=== PATIENT | female | born 1995 | race Caucasian/White ===

== ENCOUNTER → 2018-05-01 10:09 | Outpatient (CLI) | payer OTHER, SELFPAY ==
[2018-05-01 10:51] LABS: Glucose,1 Hr (Glucola) 105 mg/dL (80-140)
== END ==
PROVIDERS: PCP Nurse Practitioner Family; Visit Provider Advanced Practice Midwife
DX: Z34.83 Encounter for supervision of other normal pregnancy, third trimester (principal)
CPT/HCPCS: 36415; 82950

== ENCOUNTER → 2018-05-07 13:27 | Outpatient (REF) | payer OTHER, SELFPAY | LOC: LBN 13:27 | PROVIDERS: PCP Nurse Practitioner Family; Visit Provider Midwife | DX: Z34.83 Encounter for supervision of other normal pregnancy, third trimester (principal); Z36.85 Encounter for antenatal screening for Streptococcus B | CPT/HCPCS: 87081 ==

== ENCOUNTER → 2018-05-18 02:31 | Outpatient (CLI) | payer OTHER, SELFPAY ==
--- NOTE | 2018-05-18 12:19 | DI.REPORT_ITS ---
SYMPTOMS/DIAGNOSIS: SIZE OF FETUS INCONSISTENT WITH DATES, O26.843 OBSTETRICAL ULTRASOUND: Many abnormalities cannot be diagnosed. A normal exam does not exclude a congenital anomaly. Radiology No. [id number] LMP: Exam Date: 05/18/18 [facility] wks days on EDC ([facility]) 06/01/18 Confirmed: HISTORY: ---- PREDICTED GESTATIONAL AGE NUMBER 38 weeks with a range of 37 weeks to 39 weeks. 1 Determined by___1STUS___LMP___HISTORY PLACENTA PRESENTATION Grade II Cephalic_X__ Anterior_X__Posterior___ Breech____ Right Left Transverse(head right___ Fundal___Low-lying___Previa___ Transverse(head left___ Varying BIOMETRY AMNIOTIC FLUID BPD: 97 mm 39+5 weeks Normal HC: 340 mm 39+1 weeks AC: 341 mm 38 weeks FL: 75 mm 38+1 weeks AMNIOTIC FLUID INDEX >26 WK CRL: mm weeks Cisterna Magna: mm CI: 88 RUQ: 3.6 LUQ: 6.3 Cerebellum: cm EFW: 3472 grams Percentile: 72nd RLQ: 2.8 LLQ: 7.5 Total: 20.1 cm Composite AGE= 38+5 wks EDC by US: 05/27/18 BIOPHYSICAL PROFILE ANATOMY IDENTIFIED SCORE 0/2 Heart: 4-Chamber___Rate:BPM 131 LVOT: RVOT: Amniotic Fluid(>2cms)____ Stomach: Kidneys: Respirations (>30 secs) Bladder: Post. Fossa: Body Flex/Extension 3 vessel cord: Ventricles: cord insertion: Lips:____ Extremity Flex/Extension spinal morphology: Nose: Total Score= Palate: NS=not seen COMMENTS: There is a single living intrauterine gestation. Estimated sonographic age is 38 weeks 5 days. Estimated weight is 3472 g, which is the 72nd percentile. Amniotic fluid index is 20.1 cm. Visually, amniotic fluid appears within normal limits. The fetus is in the cephalic presentation. heart rate is 131 beats per minute. A anatomic survey was not performed at this time. The placenta is anterior without evidence of previa. IMPRESSION: Single living intrauterine gestation. Estimated sonographic age is 38 weeks 5 days.
== END ==
PROVIDERS: PCP Nurse Practitioner Family; Visit Provider Advanced Practice Midwife
DX: O26.843 Uterine size-date discrepancy, third trimester (principal)
CPT/HCPCS: 76816

== ENCOUNTER 2018-05-25 02:31 | Observation (INO) | payer OTHER, SELFPAY | END 2018-05-25 09:40 | disposition home or self-care (01) | PROVIDERS: Admitting Provider Advanced Practice Midwife; PCP Nurse Practitioner Family; Visit Provider Advanced Practice Midwife | DX: O47.1 False labor at or after 37 completed weeks of gestation (principal); Z3A.39 39 weeks gestation of pregnancy; O99.333 Smoking (tobacco) complicating pregnancy, third trimester; O99.343 Other mental disorders complicating pregnancy, third trimester; O99.820 Streptococcus B carrier state complicating pregnancy; F17.210 Nicotine dependence, cigarettes, uncomplicated; F32.89 Other specified depressive episodes | CPT/HCPCS: G0378 ==

== ENCOUNTER 2018-05-25 16:30 | Inpatient (IN) | payer OTHER, SELFPAY ==
[2018-05-25 18:11] LABS: HCT 37.9 % (36.0-46.0); Mean Corp. HGB Concentration 34.3 g/dL (32.0-36.0); Mean Corpuscular Hemoglobin 33.4 pg (27.0-33.0); Mean Corpuscular Volume 97.4 fL (80-95); Mean Platelet Volume 10.9 fL (8.0-11.0); Platelet Count 174 x1000/uL (130-400); RBC 3.89 m/cumm (4.00-5.20); RBC Distribution Width 13.6 % (11.7-14.6)
[2018-05-25] MEDS: Lactated Ringers 500 ML IV (18:30)
[2018-05-25] MEDS: Lactated Ringers 1,000 ML 125 ML IV (19:00)
[2018-05-25] MEDS: fentaNYL 100 MCG/2 ML VIAL EP (19:08)
[2018-05-25] MEDS: Bupivacaine 0.25% Pres-Free 10 ML VIAL EP (20:44)
[2018-05-26 07:02] LABS: HCT 36.6 % (36.0-46.0); HGB 12.4 g/dL (12.0-15.5); Mean Corp. HGB Concentration 33.9 g/dL (32.0-36.0); Mean Corpuscular Hemoglobin 33.4 pg (27.0-33.0); Mean Corpuscular Volume 98.7 fL (80-95); Mean Platelet Volume 10.9 fL (8.0-11.0); Platelet Count 166 x1000/uL (130-400); RBC 3.71 m/cumm (4.00-5.20); RBC Distribution Width 13.8 % (11.7-14.6)
[2018-05-26] MEDS: Ibuprofen 600 MG TAB PO ×2 (08:19→17:11)
[2018-05-26] MEDS: Acetaminophen 325 MG TAB 650 MG PO (17:11)
== END 2018-05-26 23:15 | disposition home or self-care (01) | DRG 775 ==
PROVIDERS: Admitting Provider Midwife; PCP Nurse Practitioner Family; Visit Provider Obstetrics & Gynecology Gynecology
DX: O99.824 Streptococcus B carrier state complicating childbirth (principal); Z37.0 Single live birth; Z3A.39 39 weeks gestation of pregnancy; O99.334 Smoking (tobacco) complicating childbirth; O99.344 Other mental disorders complicating childbirth; F17.210 Nicotine dependence, cigarettes, uncomplicated; F32.9 Major depressive disorder, single episode, unspecified
CPT/HCPCS: 36415; 85027; 86850; 86900; 86901; J2540; J3010

== ENCOUNTER 2019-03-12 10:25 | Emergency (ER) | payer OTHER, SELFPAY ==
[2019-03-12 10:30] VITALS: BP 128/82; PULSE 75; RESP 16; TEMP 37; O2SAT 100
[2019-03-12 10:39] VITALS: RESP 16
--- NOTE | 2019-03-12 10:41 | DI.RAD_ITS ---
SYMPTOM/DIAGNOSIS: SHORTNESS OF BREATH PA AND LATERAL CHEST: Comparison is made with 23 March 2014 The cardiac and mediastinal contours have a normal appearance. The lungs are well inflated and clear. No infiltrate, effusion or pneumothorax is seen. IMPRESSION: Negative chest x-ray.
--- NOTE | 2019-03-12 10:45 | ED.GENADUL_ITS ---
Discharge Plan Disposition Patient Disposition: HOME Condition: Stable Discharge Details Chief Complaint: SOB Clinical Impression: Shortness of breath Primary Care Provider: Edna Fields ED Provider: Darrell Dennison Home Meds and New Rx's Prescriptions: New albuterol sulfate 90 mcg/actuation HFA aerosol inhaler 1 puff IH Q4H PRN (Reason: shortness of breath) Qty: 8 RF: 0 Continued acetaminophen [Tylenol] 325 MG tablet 650 mg PO Q4H PRN PRNRF: 0 sertraline 50 mg Tablet 50 mg PO DAILY RF: 0 Discharge Instructions Additional Instructions: Follow up with your primary care provider within 1-2 weeks especially if symptoms continue use the inhaler as needed every 4 hours, 2 puffs If you have severe worsening of symptoms, feel more ill or have new symptoms such as abdominal pain or persistent vomit return to the emergency department Medical Decision Making 23 yo female with hx of anxiety, smoker, who comes in with chief complaint of several weeks of shortness of breath. She denies fevers, has intermittent pleuritic right sided chest pain with deep breaths otherwise no leg swelling. Denies pain with exertion. She has no abdominal tendernress, mild apical wheezing bialterally otherwise clear lungs. On bedside u/s has no pericardial effusion and normal appearing ef with no dilated right ventricle, gallbladder also appears normal without pericholecystic fluid and no tenderness and wall thickness of 1mm without stones. She is wells low and perc negative so doubt PE. Symptoms not consistent with acs. Given her wheezing will tx with neb, could have bronchitis being exacerbated by her smoking history, and obtain cxr to eval for infiltrate pt feeling better, wheezing is now gone and xray negative on my read, has continued lung nodule I advised her about. Will d/c home, advised f/u with pcp especially if symptoms continue and return precautions given Differential Diagnosis asthma, pna, bronchitis Imaging Data Radiologic Study: Attestation: I personally reviewed and interpreted this imaging study as follows: Imaging: X-Ray My impression: no acute findings ECG Data Attestation: I personally reviewed and interpreted this ECG (s) as follows: Prior ECG tracings: not available for review Interpretation: sinus rhythm, rate of 71, pr 150, no acute st t wave ischemic changes HPI General Mode of arrival: ambulatory . Date/Time Provider Initiated Documentation: 03/12/19 10:26 . Limitations to Documentation: no limitations . Information obtained by: patient . History of Present Illness 23 year old F presents to the emergency department with the chief complaint of shortness of breath, described as mild and moderate, Quality is described as aching, Patient reports no radiation. Patient started experiencing this week(s) (2) and it has been constant. No relieving factors improve symptom(s), No exacerbating factors reported . Patient did receive the following treatments prior to arrival, none Related Data Home Medications Medication Instructions Recorded Confirmed acetaminophen [Tylenol] 650 mg PO Q4H PRN PRN tab 05/05/15 03/12/19 albuterol sulfate 1 puff IH Q4H PRN #8 gm 03/12/19 sertraline 50 mg PO DAILY 03/12/19 03/12/19 Previous Rx's Medication Instructions Recorded acetaminophen [Tylenol] 650 mg PO Q4H PRN PRN tab 05/05/15 albuterol sulfate 1 puff IH Q4H PRN #8 gm 03/12/19 Allergies Allergy/AdvReac Type Severity Reaction Status Date / Time cefixime [From Suprax] Allergy Severe Anaphylaxsi Unverified 03/12/19 10:36 s General Stated Complaint: SOB BECCA: 3 Review of Systems Review of Systems All systems reviewed & are unremarkable except as noted in HPI and below Constitutional Denies chills, Denies fever(s) and Denies weakness Gastrointestinal Denies nausea and Denies vomiting Musculoskeletal Denies joint swelling Neurologic Denies weakness PFSH Medical History Depression Headache causing frequent awakening from sleep (05/15/17) Surgical History Reconstruction face Family History Mother Essential hypertension Mental disorder Father No problems noted. Sister Mental disorder Brother Substance abuse Other Alcohol abuse Social History Smoking/Tobacco Use Status: Current every day Alcohol Intake: never Drug use: Never Do you feel safe at home: Yes Do you feel safe in your relationship?: Yes Exam Const General: no acute distress Orientation: alert HENMT Head: normal to inspection Ears: external ears normal General nose exam: external nose normal Mouth: moist mucous membranes Eyes General: appearance normal, both eyes and all related structures Neck Neck: normal visual inspection Resp Effort & Inspection: normal respiratory effort and able to speak in complete sentences Cardio Rate: regular rate GI Palpation: soft Skin General skin exam: no rashes or lesions noted Neuro General: alert and oriented x3 Extrem General: normal to inspection Psych Mental Status: mental status grossly normal Course Vital Signs Temperature 37 C 03/12/19 10:30 Pulse 75 03/12/19 10:30 Respiratory Rate 16 03/12/19 10:30 Blood Pressure 128/82 03/12/19 10:30 Pulse Oximetry 100 03/12/19 10:30 Temperature 37 C 03/12/19 10:30 Temperature Source Temporal Artery Scan 03/12/19 10:30 Pulse 75 03/12/19 10:30 Respiratory Rate 16 03/12/19 10:39 Respiratory Effort 03/12/19 10:39 Respiratory Depth Normal 03/12/19 10:39 Respiratory Pattern Normal 03/12/19 10:39 Blood Pressure 128/82 03/12/19 10:30 Blood Pressure Position Sitting 03/12/19 10:30 Pulse Oximetry 100 03/12/19 10:30 Oxygen Delivery Method Room Air 03/12/19 10:30 Oxygen Flow Rate 0 03/12/19 10:30 Pain Level 0 03/12/19 10:30
[2019-03-12 10:46] VITALS: PULSE 75; RESP 16; O2SAT 100
[2019-03-12] MEDS: Albuterol 2.5 MG/3 ML INH SOLN VIAL UPD (10:46)
== END 2019-03-12 11:41 | disposition home or self-care (01) ==
PROVIDERS: Emergency Provider Emergency Medicine; PCP Nurse Practitioner Family
DX: R06.02 Shortness of breath (principal); F17.210 Nicotine dependence, cigarettes, uncomplicated
CPT/HCPCS: 81025; 93005; 94640; 99284; 71046; 93010; J7613

== ENCOUNTER 2019-03-31 18:08 | Outpatient (REF) | payer OTHER, SELFPAY ==
[2019-03-31 21:51] LABS: Iron 133 ug/dL (50-175); Total Iron Binding Capacity 246 ug/dL (250-450); Transferrin Sat 54 % (15-50)
[2019-03-31 21:53] LABS: HCT 44.1 % (36.0-46.0); Mean Corpuscular Volume 96.9 fL (80-95); Platelet Count 252 x1000/uL (130-400); RBC 4.55 m/cumm (4.00-5.20); RBC Distribution Width 12.7 % (11.7-14.6); White Blood Cell Count 6.29 k/cumm (4.4-10.8)
[2019-03-31 22:19] LABS: Vitamin B12 908 pg/mL (193-986)
[2019-04-01 07:08] LABS: Vitamin D 25 Total 42.8 ng/ml (30-100)
== END 2019-03-31 18:28 ==
LOC: NCHCN 18:08
PROVIDERS: PCP Nurse Practitioner Family; Visit Provider Nurse Practitioner Family
DX: F41.1 Generalized anxiety disorder (principal)
CPT/HCPCS: 82306; 85027; 82607; 83540; 83550; 84443

== ENCOUNTER 2021-05-17 17:39 | Outpatient (REF) | payer MEDICAID, SELFPAY ==
[2021-05-18 11:29] LABS: COVID-19 RT-PCR UVMMC Result Negative (Negative)
== END 2021-05-17 17:40 | disposition home or self-care (01) ==
LOC: NCHCN 17:39
PROVIDERS: Visit Provider Nurse Practitioner Family
DX: Z20.822 Contact with and (suspected) exposure to COVID-19 (principal)
CPT/HCPCS: U0003

== ENCOUNTER 2021-11-06 11:59 | Outpatient (REF) | payer MEDICAID, SELFPAY ==
--- NOTE | 2021-11-06 09:15 | PAPFT_PTH ---
PATIENT: Chad Gamboa LOC: [facility] U#:[id number] AGE/SX: 26/F ROOM: RE11/06/[address]: Cecilia Lemos : 1995 BED: DIS: 11/06/2021 SPEC #: [id number] RECD: 11/07/21 13:09 STATUS: SHAHRAM REMeghna #: [id number] UDAY: 11/06/21 09:[address]: Cecilia Lemos DEPT: ON LICENSE OF [facility] Cytology RECD BY: Azucena Valadez ENTERED: 11/07/21 13:09 SP TYPE: PAPFT OTHR DR: Unknown,Unknown Tissues: 1 - CX/ENDOCX FOR PAP SMEARS Procedures: PAP THIN PREP/[facility] Screening Comments: [id number] (CHLAMYDIA/GC)
[2021-11-06 14:59] LABS: HCT 46.1 % (36.0-46.0); HGB 15.1 g/dL (11.2-15.7); MCH 33.5 pg (27.0-33.0); MCHC 32.8 % (32.0-36.0); MCV 102.2 fL (80-95); MPV 10.8 fL (8.0-11.0); Platelet Count 321 10^3/uL (130-400); RBC 4.51 10^6/uL (3.93-5.22); RDW 12.5 % (11.7-14.6); RDW-SD 47.6 fL; WBC 11.19 10^3/uL (4.4-10.8)
[2021-11-06 15:12] LABS: ALT 28 U/L (14-59); AST 15 U/L (15-37); Anion Gap 10.2 mmol/L (3-11); BUN 7 mg/dL (7-18); CO2 24.8 mmol/L (21.0-32.0); CREATININE 0.7 mg/dL (0.55-1.02); Calcium 9.5 mg/dL (8.5-10.1); Chloride 104 mmol/L (98-107); Glucose 83 mg/dL (74-106); Potassium 4.6 mmol/L (3.5-5.1); Sodium 139 mmol/L (136-145)
[2021-11-08 05:00] LABS: Vitamin D 25 Total 37.2 ng/mL (30-100)
[2021-11-08 15:26] LABS: Chlamydia Result Negative (Negative); GC Result Negative (Negative)
== END 2021-11-06 12:00 | disposition home or self-care (01) ==
LOC: NCHCN 11:59
PROVIDERS: Visit Provider Nurse Practitioner Family
DX: E55.9 Vitamin D deficiency, unspecified (principal); Z51.81 Encounter for therapeutic drug level monitoring; Z12.4 Encounter for screening for malignant neoplasm of cervix; Z11.3 Encounter for screening for infections with a predominantly sexual mode of transmission
CPT/HCPCS: 80048; 82306; 85027; 87491; 87591; 88142; 84443; 84450; 84460

== ENCOUNTER 2024-10-19 16:48 | Outpatient (REF) | payer BC, SELFPAY ==
[2024-10-19 21:46] LABS: HCT 42.6 % (36.0-46.0); HGB 14.4 g/dL (11.2-15.7); MCH 33.4 pg (27.0-33.0); MCHC 33.8 % (32.0-36.0); MCV 99 fL (80-95); MPV 10.3 fL (8.0-11.0); Platelet Count 305 10^3/uL (130-400); RBC 4.31 10^6/uL (3.93-5.22); RDW 11.6 % (11.7-14.6); RDW-SD 42.4 fL; WBC 5.79 10^3/uL (4.4-10.8)
[2024-10-19 22:23] LABS: ALT 23 U/L (14-59); AST 15 U/L (15-37); Albumin 3.8 g/dL (3.4-5.0); Alkaline Phosphatase 81 U/L (46-116); BUN 13 mg/dL (7-18); Bilirubin, Total 0.25 mg/dL (0.2-1.0); CREATININE 0.7 mg/dL (0.55-1.02); Calcium 9.1 mg/dL (8.5-10.1); Calculated LDL 181 mg/dL (<100); Chloride 105 mmol/L (98-107); Cholesterol 262 mg/dL (<200); Estimated GFR 119.99 (mL/min/1.73m2); Ferritin 73 ng/mL (8-252); Glucose 84 mg/dL (74-106); HDL Cholesterol 46 mg/dL (40-60); Potassium 4.4 mmol/L (3.5-5.1); Sodium 140 mmol/L (136-145); TSH (W/Ref FT4) 2.18 uIU/mL (0.36-3.74); Total Protein 7.4 g/dL (6.4-8.2); Triglyceride 178 mg/dL (<150); Vitamin D 25 Total 24.1 ng/mL (30-100)
[2024-10-19 22:49] LABS: Iron 102 ug/dL (50-170); Total Iron Binding Capacity 281 ug/dL (250-450); Transferrin Sat 36 % (15-50)
== END 2024-10-19 16:49 | disposition home or self-care (01) ==
LOC: NCHCN 16:48
PROVIDERS: Visit Provider Nurse Practitioner Family
DX: Z00.00 Encounter for general adult medical examination without abnormal findings (principal); R53.83 Other fatigue; E55.9 Vitamin D deficiency, unspecified
CPT/HCPCS: 80053; 80061; 82306; 85027; 82728; 83540; 83550; 84443